=== PATIENT | female | born 1950 ===

== ENCOUNTER 2025-05-20 04:34 | Emergency (ER) | payer MEDICARE, SELFPAY ==
[2025-05-20] VITALS (11 sets, daily range): BP systolic 98–176; BP diastolic 54–113; PULSE 89; O2SAT 96; BMI 28.4
--- NOTE | 2025-05-20 08:14 | ED.GENMED ---
History of Present Illness
<Roosevelt Barron MD, Resident - Last Filed: 05/20/25 15:40>
General
Chief Complaint: Musculo-Skeletal Complaint
Time Seen by Provider: 05/20/25 07:28
History of Present Illness
History of Present Illness:
75 yo F who self diagnosed Parkinson for 3-4 years is coming in because of acute right hip pain that is reported 10/10 severity since last night.
She reports long standing symptoms of right leg rigidity for ~1 year, and then right hip pain for ~1 month. The symptoms are an acute worsening.
she also reports several falls over the last year, and now must use a wheelchair to move around at home. She says that the hip pain persists at rest and on exertion. She reports that she is chair-bound for nearly 'all day'
she denies any recent falls, syncope, trauma to the leg.
denies chest pain, dyspnea, abdominal pain. she also reports that her legs are more swollen with dry skin changes.
denies any dysuria
denies any fevers/chills
denies nausea/vomiting
denies hematemesis/blood in stool
she denies any other PMH
denies any PSH
NKDA
reports a family history of heart disease in father so she reports taking '>4 baby aspirin per day'
she reports taking 'lot of aspirin and advil'
Past History
<Roosevelt Barron MD, Resident - Last Filed: 05/20/25 15:40>
Past History
ED Past Medical History: None
ED Past Surgical History: None
Review of Systems
<Roosevelt Barron MD, Resident - Last Filed: 05/20/25 15:40>
Review of Systems
Constitutional: Reports no symptoms
EENT: Reports no symptoms
Respiratory: Reports no symptoms
Cardiac: Reports no symptoms
Phy Exam
<Roosevelt Barron MD, Resident - Last Filed: 05/20/25 15:40>
Physical Exam
Physical Exam:
VS: 137/78; HR 96; T 98.8; 97% spO2
General: no acute distress
CV: no murmurs
Pulm: CTAB
Abd: + bowel sounds, no tenderness to palpation
MSK: 1-2 nonpitting lower extremity edema, R lower extremity appears warmer than L lower extremity; tenderness to palpation over right hip, no rash visible. reported pain upon movement of right leg, but no focal neurologic deficits. rigidity
appreciated on flexion of R knee vs. left
Back: no CVA tenderness, no focal tenderness along spine
Neuro: AOx3, requires consistent redirection during conversation
Course
<Roosevelt Barron MD, Resident - Last Filed: 05/20/25 15:40>
Orders/Labs/Results
Orders:
Orders
05/20/25 08:28
Acetaminophen [Tylenol] 650 mg PO NOW STA
diazePAM [Valium Injection] 2 mg IV NOW STA
05/20/25 08:29
CT Head W/o Iv Contrast Urgent
Comment:
Reason For Exam: falls
CR Hip - RT w/wo Pel 2-3 Vw* Urgent
Comment:
Reason For Exam: right hip pain
Include a pelvis x-ray?: Yes
CR Lumbar Spine Comp Min 4 Vw* Urgent
Comment:
Reason For Exam: right hip pain
05/20/25 08:43
CPK [Creatine Phosphokinase] Urgent
CRP [C-Reactive Protein] Urgent
Complete Blood Count/With Diff Urgent
Comprehensive Metabolic Panel Urgent
D-Dimer Urgent
ESR [Erythrocyte Sed Rate] Urgent
05/20/25 09:45
Dexamethasone Sod Phosphate [Decadron] 10 mg IV NOW STA
HYDROmorphone [Dilaudid] 0.5 mg IV NOW STA
Ketorolac [Toradol] 15 mg IV NOW STA
05/20/25 12:03
diazePAM [Valium Injection] 2 mg IV NOW STA
05/20/25 12:36
Physical Therapy Consult [Pt Eval And Treat] Urgent
Activity Level: Ambulate
05/20/25 14:27
Diazepam [Valium] 5 mg PO NOW STA
Abnormal Lab Results
05/20/25
08:43
Absolute Neuts (auto) 7.6 H 10^3/uL
(1.4-6.5)
Absolute Lymphs (auto) 0.9 L 10^3/uL
(1.2-3.4)
Neutrophils % 84.7 H %
(42.2-75.2)
Lymphocytes % 9.8 L %
(20.5-51.1)
BUN 22 H mg/dl
(7-17)
Glucose 104 H mg/dl
(70-99)
05/20/25 08:43
05/20/25 08:43
Vital Signs
Initial and Last Documented VS:
Initial Vital Signs
Temp Pulse Resp BP Pulse Ox
98.8 F 86 20 137/78 98
05/20/25 05:14 05/20/25 05:14 05/20/25 05:14 05/20/25 05:14 05/20/25 05:14
Last Documented Vital Signs
Temp Pulse Resp BP Pulse Ox
98.8 F 103 18 156/91 96
05/20/25 15:02 05/20/25 13:45 05/20/25 13:45 05/20/25 14:06 05/20/25 14:45
<Jeff Brenner MD - Last Filed: 05/21/25 08:43>
Orders/Labs/Results
Orders:
Orders
05/20/25 08:28
Acetaminophen [Tylenol] 650 mg PO NOW STA
diazePAM [Valium Injection] 2 mg IV NOW STA
05/20/25 08:29
CT Head W/o Iv Contrast Urgent
Comment:
Reason For Exam: falls
CR Hip - RT w/wo Pel 2-3 Vw* Urgent
Comment:
Reason For Exam: right hip pain
Include a pelvis x-ray?: Yes
CR Lumbar Spine Comp Min 4 Vw* Urgent
Comment:
Reason For Exam: right hip pain
05/20/25 08:43
CPK [Creatine Phosphokinase] Urgent
CRP [C-Reactive Protein] Urgent
Complete Blood Count/With Diff Urgent
Comprehensive Metabolic Panel Urgent
D-Dimer Urgent
ESR [Erythrocyte Sed Rate] Urgent
05/20/25 09:45
Dexamethasone Sod Phosphate [Decadron] 10 mg IV NOW STA
HYDROmorphone [Dilaudid] 0.5 mg IV NOW STA
Ketorolac [Toradol] 15 mg IV NOW STA
05/20/25 12:03
diazePAM [Valium Injection] 2 mg IV NOW STA
05/20/25 12:36
Physical Therapy Consult [Pt Eval And Treat] Urgent
Activity Level: Ambulate
05/20/25 14:27
Diazepam [Valium] 5 mg PO NOW STA
Abnormal Lab Results
05/20/25
08:43
Absolute Neuts (auto) 7.6 H 10^3/uL
(1.4-6.5)
Absolute Lymphs (auto) 0.9 L 10^3/uL
(1.2-3.4)
Neutrophils % 84.7 H %
(42.2-75.2)
Lymphocytes % 9.8 L %
(20.5-51.1)
BUN 22 H mg/dl
(7-17)
Glucose 104 H mg/dl
(70-99)
05/20/25 08:43
12/30/25 08:43
Vital Signs
Initial and Last Documented VS:
Initial Vital Signs
Temp Pulse Resp BP Pulse Ox
98.8 F 86 20 137/78 98
05/20/25 05:14 05/20/25 05:14 05/20/25 05:14 05/20/25 05:14 05/20/25 05:14
Last Documented Vital Signs
Temp Pulse Resp BP Pulse Ox
98.8 F 103 18 156/91 96
05/20/25 15:02 05/20/25 13:45 05/20/25 13:45 05/20/25 14:06 05/20/25 14:45
<Roosevelt Barron MD, Resident - Last Filed: 05/20/25 15:40>
MDM/Problems Addressed
Differential Diagnosis Includes:
Osteoarthritis, NPH, shingles, MSK strain, rhabdomyolysis, DVT, PE, septic arthritis, reactive arthritis, intracranial abnormality/bleed, dementia
MDM/Problems Addressed:
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 She reports taking 'lot of advil and aspirin.'
right hip pain, acute on chronic hip pain and ongoing right lower extremity rigidity/pain
no clear trigger event, eg fall, trauma, syncope
no focal neurologic deficits on exam
patient conversation can be difficult to redirect, however, AOx3 and no focal deficits
denies fevers/chills
bilateral leg swelling but denies chest pain, dyspnea. not hypoxemic.
Plan:
- Labs: CBC, CMP, CPK, ESR, CRP, D-Dimer
- Pain control: PO tylenol 650mg, IV diazepam 2mg
- Imaging: X-ray right hip, X-ray lumbar spine, CT head noncontrast
Updates:
- Labs returned unremarkable
- Head CT noncontrast showed no acute abnormality
- X-ray right hip showed no evidence of cortical fracture, degenerative changes
- X-ray lumbar spine showed no evidence of vertebral compression fracture, degenerative changes
- patient expressed that during imaging of hip, the different positions caused her pain to recur
- 0.5mg IV hydromorphone; 15mg IV toradol; 10mg IV dexamethasone for pain control; additional 2mg IV diazepam given
- Physical therapy was called and initially, the patient refused to move to edge of bed. However, upon re-request by the patient who was asking for help to stand, Physical therapy re-evaluation recommendation still that patient will benefit from
skilled rehab, however, patient wants to be discharged to home and manage the symptoms with pain medications sent outpatient.
- will refer to orthopedic surgery and neurology for follow-up outpatient.
- prescriptions will be sent for a steroid taper, diazepam, and cyclobenzoprine to outpatient pharmacy.
<Roosevelt Barron MD, Resident - Last Filed: 05/20/25 15:40>
*Pulse Oximetry
SaO2: 97
Oxygen Mode of Delivery: Room air
Patient hypoxic: no
*Critical Care Note
Total Time (30-74mins, 75-104mins- exclusive of procedures): Not Applicable
ED Attending Note
<Roosevelt Barron MD, Resident - Last Filed: 05/20/25 15:40>
-
Portions of this chart may have been created with voice recognition software.� Occasional wrong word or��sound alike� substitutions may have occurred due to the inherent limitations of voice recognition software.
<Jeff Brenner MD - Last Filed: 05/21/25 08:43>
ED Attending Note
Patient seen and examined by attending physician: Yes
ED Attending Note:
Patient without any significant past medical history, presents ED secondary to worsening right hip pain over the past 2 months. Denies trauma. Denies loss of sensation or weakness. Denies urinary or bowel incontinence. Denies fever or chills.
Denies back pain. Patient has been utilizing walker, as well as wheelchair for recently, due to worsening pain and inability to walk. Over the past 3 days, patient states that her symptoms have worsened. Denies previous history of similar
symptoms. Denies previous injury. Patient unfortunately has not seen any primary care physician for over 2 years. Patient currently does not take any prescribed medications.
Physical Exam
General: moderate painful distress, not acutely ill. afebrile
Head: nc/at. eomi
Neck: supple. normal range of motion.
Abdomen: normal bowel sounds. not tender.
Neuro: alert and oriented x 3. no focal neurological deficits
Skin: no rash
Psychiatric: well kept. interactive and cooperative
Extremities: moderate tenderness to palpation over right lateral hip, without ecchymosis/swelling/erythema. no obvious deformity.
X-ray report reviewed and discussed with patient. No acute findings noted. Unfortunately, patient with continued intermittent severe pain with spasm, despite treatment.
Patient evaluated by physical therapist with recommendations provided including potential transition to SNF short-term. However, at this time, patient request to be discharged home. Patient feels that she will receive help at home, if needed, with
her son who lives with the patient. As such, patient will be discharged home with short course of medications, including Flexeril and Valium, which is not to be taken together, along with Medrol Dosepak. In addition, referral to orthopedic surgery
and neurology provided, to be follow-up as outpatient. Patient otherwise is afebrile, hemodynamically stable, neurologically intact, and appears comfortable, at time of discharge.
Discharge Plan
Departure
Patient Disposition: Home (Routine Discharge)
Date of Disposition: 05/20/25
Time of Disposition: 14:08
Patient with high blood pressure during this ER visit?: Yes
Condition: Fair
Discharge Problem:
Trochanteric bursitis
Instructions: Bursitis - ED (DC)
Prescriptions:
New
methylprednisolone [Medrol (Oscar)] 4 mg tablets,dose pack
4 mg PO DAILY Qty: 21 0RF
Rx Instructions:
As directed
cyclobenzaprine 10 mg tablet
10 mg PO TIDPRN PRN (Reason: muscle spasm) Qty: 20 0RF
diazepam [Valium] 5 mg tablet
5 mg PO BID PRN (Reason: muscle spasm) Qty: 10 0RF
No Action
aspirin 325 mg Tablet
650 mg PO QIDPRN PRN (Reason: mild pain)
ibuprofen [Advil] 200 mg Tablet
600 mg PO TIDPRN PRN (Reason: mild pain)
Velvet Beans 500 mg capsule
1 cap PO QID
Referrals:
Nick Bryan MD [Active, Neurology] - Call in 1-3 days for appt
Referral Note: Please follow-up with neurology as outpatient by calling for an appointment
Fernando Marti MD [Active, Orthopedics] - Call in 1-3 days for appt
Referral Note: Please follow up with orthopedic surgery by calling for an appointment
Jatin Villanueva DO [Family Provider, Family Practice]
Referral Note: Please follow-up with your primary care doctor within the next 1-2 weeks
Activity Restrictions/Additional Instructions:
You presented to the ER with hip pain. Your imaging workup did not show evidence of a fracture or dislocation. Your lab-work was normal. You should call your family doctor and move your appointment to be sooner.
Please follow-up with orthopedic surgery and neurology by calling for an appointment. The names of the referrals are provided above.
Prescriptions for a steroid course and muscle relaxants are being sent to your pharmacy ([facility]).
Interventions
Interventions:
*General Assessment Last Done: 05/20/25 05:14
*Neglect/Abuse Screening Last Done: 05/20/25 05:14
*ED COVID-19 Vaccine History Last Done: 05/20/25 05:14
*ED Influenza Vaccine History Last Done: 05/20/25 05:14
[facility] Risk Assessment Tool Last Done: 05/20/25 07:48
*Risk Screen - Suicide (C-SSRS) Last Done: 05/20/25 05:14
*Nursing Disposition Last Done: 05/20/25 15:03
ED-Musculoskeletal Assessment Last Done: 05/20/25 12:22
Discharge Date and Time
Discharge Date/Time: 05/20/25 16:07
Print Language: GRENADIAN
[2025-05-20] MEDS: TYLENOL 650 MG PO (08:33)
[2025-05-20] MEDS: VALIUM INJECTION 2 MG IV ×2 (08:44→12:11)
[2025-05-20 09:06] LABS: Hematocrit 41.3 % (37.0-47.0); Hemoglobin 14.3 g/dL (12.0-16.0); Mean Corp Hgb Conc. 34.6 g/dL (33.0-37.0); Mean Corpuscular Volume 88.1 fL (81.0-99.0); Nucleated Red Blood Cells % 0 %; Platelet Count 295 10^3/uL (130-400); Red Cell Dist. Width 13.0 % (11.5-14.5)
[2025-05-20 09:14] LABS: ALT (SGPT) 18 U/L (0-35); AST (SGOT) 27 U/L (14-36); Albumin 4.4 g/dl (3.5-5.0); Alkaline Phosphatase 72 U/L (38-126); Blood Urea Nitrogen 22 mg/dl (7-17); Calcium 9.8 mg/dl (8.4-10.2); Carbon Dioxide 23 mmol/L (22-30); Chloride 107 mmol/L (98-107); Estimated Creatinine Clearance 62 ml/min; Glucose 104 mg/dl (70-99); Potassium 4.1 mmol/L (3.5-5.1); Sodium 137 mmol/L (135-145); Total Protein 7.1 g/dl (6.3-8.2); eGFR > 60.00
[2025-05-20 09:17] LABS: C-Reactive Protein < 5.00 mg/L (0.0-10.00)
[2025-05-20 09:25] LABS: D-Dimer 0.29 ug/mlFEU (0.00-0.50)
[2025-05-20] MEDS: DECADRON 10 MG IV (10:04)
[2025-05-20] MEDS: DILAUDID 0.5 MG IV (10:05)
[2025-05-20] MEDS: TORADOL 15 MG IV (10:05)
[2025-05-20] MEDS: VALIUM 5 MG PO (14:52)
== END 2025-05-20 16:07 | disposition home or self-care (01) ==
LOC: EMR 04:34
PROVIDERS: EMERGENCY PHYSICIAN Emergency Medicine; FAMILY PHYSICIAN Family Medicine
DX: M70.61 Trochanteric bursitis, right hip (principal); G89.29 Other chronic pain; G20.A1 Parkinson's disease without dyskinesia, without mention of fluctuations; R29.6 Repeated falls; R60.0 Localized edema
CPT/HCPCS: 99284; 96374; 96375; 96376; 70450; 72110; 73502; 80053; 82550; 85025; 85379; 85652; 86140